=== PATIENT | male | born 1965 | race Caucasian/White ===

== ENCOUNTER 2017-07-19 16:52 | Emergency (ER) | payer OTHER ==
[2017-07-19 17:04] VITALS: RESP 18
[2017-07-19] MEDS ORDERED: SODIUM CHLORIDE 0.9% 1,000 ML IV STA (17:26)
--- NOTE | 2017-07-19 17:37 | ED ---
Neuro HPI - General Chief Complaint: Neuro Symptoms/Deficit Stated Complaint: poss cva Time Seen by Provider: 07/19/17 17:12 Source: patient, family, RN notes reviewed Mode of arrival: wheelchair Limitations: no limitations - History of Present Illness Is the patient presenting with stroke symptoms?: No Initial Comments: This is a 52-year-old male who presents with complaints of the onset yesterday around 11 AM of left-sided facial arm and leg numbness and tingling. He denied any weakness any blurry vision and headache dizziness nausea vomiting palpitations or other symptoms. Patient is a smoker he does drink he states around 3 drinks a day. No other medical issues at this time. No prior history of strokes he did see his doctor today who did recommend that he come to the hospital and get a CAT scan done. He still has some of the numbness and tingling. He also states that yesterday he has some ringing in his left ear the persisted. - Related Data Home Medications: Home Medications Medication Instructions Recorded Confirmed Aspirin 650 mg PO ONCE PRN 07/19/17 07/19/17 Ibuprofen [Motrin] 200 - 400 mg PO Q6HR PRN 07/19/17 07/19/17 Previous Rx's Medication Instructions Recorded Enalapril [Vasotec] 5 mg PO DAILY #15 tablet 07/19/17 Allergies/Adverse Reactions: Allergies Allergy/AdvReac Type Severity Reaction Status Date / Time No Known Allergies Allergy Verified 07/19/17 17:31 Review of Systems ROS Statement: Those systems with pertinent positive or pertinent negative responses have been documented in the HPI. ROS Other: All systems not noted in ROS Statement are negative. General Exam - General Exam Comments Initial Comments: This is a well-developed well-nourished awake alert oriented 3 male Limitations: no limitations General appearance: alert, in no apparent distress Head exam: Present: atraumatic, normocephalic, normal inspection Eye exam: Present: normal appearance, PERRL, EOMI. Absent: scleral icterus, conjunctival injection, periorbital swelling ENT exam: Present: mucous membranes moist, other (The patient demonstrates some fluid and left tympanic membrane no erythema no overt opacity. The rate was within normal limits.) Neck exam: Present: normal inspection, full ROM, other (No stridor JVD or bruits ). Absent: tenderness, meningismus, lymphadenopathy Respiratory exam: Present: wheezes (Wheezes and right lower lobe), decreased breath sounds. Absent: respiratory distress, rales, rhonchi, stridor Cardiovascular Exam: Present: regular rate, normal rhythm, normal heart sounds. Absent: systolic murmur, diastolic murmur, rubs, gallop, clicks GI/Abdominal exam: Present: soft, normal bowel sounds. Absent: distended, tenderness, guarding, rebound, rigid, bruit, pulsatile mass Extremities exam: Present: normal inspection, full ROM, normal capillary refill. Absent: tenderness, pedal edema, joint swelling, calf tenderness Back exam: Present: normal inspection Neurological exam: Present: alert, oriented X3, CN II-XII intact Psychiatric exam: Present: normal affect, normal mood Skin exam: Present: warm, dry, intact, normal color. Absent: rash Stroke MDM - Lab Data Result diagrams: 07/19/17 17:45 07/19/17 17:45 Lab Results 07/19/17 07/19/17 07/19/17 Range/Units 17:44 17:45 17:45 WBC (3.8-10.6) k/uL RBC (4.30-5.90) m/uL Hgb (13.0-17.5) gm/dL Hct (39.0-53.0) % MCV (80.0-100.0) fL MCH (25.0-35.0) pg MCHC (31.0-37.0) g/dL RDW (11.5-15.5) % Plt Count (150-450) k/uL Neutrophils % % Lymphocytes % % Monocytes % % Eosinophils % % Basophils % % Neutrophils # (1.3-7.7) k/uL Lymphocytes # (1.0-4.8) k/uL Monocytes # (0-1.0) k/uL Eosinophils # (0-0.7) k/uL Basophils # (0-0.2) k/uL Macrocytosis PT (9.0-12.0) sec INR (<1.2) APTT (22.0-30.0) sec Sodium 140 (137-145) mmol/L Potassium 3.6 (3.5-5.1) mmol/L Chloride 106 (98-107) mmol/L Carbon Dioxide 24 (22-30) mmol/L Anion Gap 10 mmol/L BUN 10 (9-20) mg/dL Creatinine 0.76 (0.66-1.25) mg/dL Est GFR (MDRD) Af Amer >60 (>60 ml/min/1.73 sqM) Est GFR (MDRD) Non-Af >60 (>60 ml/min/1.73 sqM) Glucose 89 (74-99) mg/dL POC Glucose (mg/dL) 113 H (75-99) mg/dL POC Glu Capacitor Inspector ID [place] Calcium 9.5 (8.4-10.2) mg/dL Magnesium 1.8 (1.6-2.3) mg/dL Total Bilirubin 0.4 (0.2-1.3) mg/dL AST 29 (17-59) U/L ALT 48 (21-72) U/L Alkaline Phosphatase 88 (38-126) U/L Total Creatine Kinase 61 (55-170) U/L CK-MB (CK-2) 1.8 (0.0-2.4) ng/mL CK-MB (CK-2) Rel Index 3.0 Troponin I <0.012 (0.000-0.034) ng/mL Total Protein 6.9 (6.3-8.2) g/dL Albumin 4.2 (3.5-5.0) g/dL Amylase 52 (30-110) U/L Lipase 98 (23-300) U/L TSH 4.480 (0.465-4.680) mIU/L Serum Alcohol <10 mg/dL 07/19/17 07/19/17 Range/Units 17:45 17:45 WBC 10.3 (3.8-10.6) k/uL RBC 4.62 (4.30-5.90) m/uL Hgb 16.1 (13.0-17.5) gm/dL Hct 46.3 (39.0-53.0) % MCV 100.2 H (80.0-100.0) fL MCH 34.8 (25.0-35.0) pg MCHC 34.7 (31.0-37.0) g/dL RDW 14.2 (11.5-15.5) % Plt Count 185 (150-450) k/uL Neutrophils % 63 % Lymphocytes % 27 % Monocytes % 5 % Eosinophils % 3 % Basophils % 1 % Neutrophils # 6.5 (1.3-7.7) k/uL Lymphocytes # 2.8 (1.0-4.8) k/uL Monocytes # 0.5 (0-1.0) k/uL Eosinophils # 0.3 (0-0.7) k/uL Basophils # 0.1 (0-0.2) k/uL Macrocytosis Slight PT 10.4 (9.0-12.0) sec INR 1.0 (<1.2) APTT 24.3 (22.0-30.0) sec Sodium (137-145) mmol/L Potassium (3.5-5.1) mmol/L Chloride (98-107) mmol/L Carbon Dioxide (22-30) mmol/L Anion Gap mmol/L BUN (9-20) mg/dL Creatinine (0.66-1.25) mg/dL Est GFR (MDRD) Af Amer (>60 ml/min/1.73 sqM) Est GFR (MDRD) Non-Af (>60 ml/min/1.73 sqM) Glucose (74-99) mg/dL POC Glucose (mg/dL) (75-99) mg/dL POC Glu Capacitor Inspector ID Calcium (8.4-10.2) mg/dL Magnesium (1.6-2.3) mg/dL Total Bilirubin (0.2-1.3) mg/dL AST (17-59) U/L ALT (21-72) U/L Alkaline Phosphatase (38-126) U/L Total Creatine Kinase (55-170) U/L CK-MB (CK-2) (0.0-2.4) ng/mL CK-MB (CK-2) Rel Index Troponin I (0.000-0.034) ng/mL Total Protein (6.3-8.2) g/dL Albumin (3.5-5.0) g/dL Amylase (30-110) U/L Lipase (23-300) U/L TSH (0.465-4.680) mIU/L Serum Alcohol mg/dL - NIH Stroke Scale 1a. Level of Consciousness: (0) alert 1b. LOC Questions: (0) answers correctly 1c. LOC Commands: (0) performs tasks correctly 2. Best Gaze: (0) normal 3. Visual: (0) no visual loss 4. Facial Palsy: (0) normal symmetrical movement 5a. Motor Arm Left: (0) no drift 5b. Motor Arm Right: (0) no drift 6a. Motor Leg Left: (0) no drift 6b. Motor Leg Right: (0) no drift 7. Limb Ataxia: (0) absent 8. Sensory: (0) normal 9. Best Language: (0) no aphasia 10. Dysarthria: (0) normal 11. Extinction/Inattention: (0) no abnormality - Medical Decision Making The patient's x-ray and CT are negative for acute findings. I did a long discussion with her regarding smoking cessation lasting 3.1 minutes total also alcohol cessation increase oral fluids he was offered admission for evaluation for neurological symptoms he is declining at this time. He wants to see outpatient treatment. He was instructed to take a baby aspirin a day return if any problems. He will also be started on low-dose antihypertensive medication. - EKG Data -: EKG Interpreted by Me EKG shows normal: sinus rhythm, axis, intervals, QRS complexes, ST-T waves ( Sinus rhythm rate is 74. Interval 150 to QRS 80 QT since QTC of 382/[address]-T wave changes this appears be a normal EKG) Past Medical History Past Medical History: No Reported History History of Any Multi-Drug Resistant Organisms: None Reported Past Surgical History: Orthopedic Surgery Past Psychological History: No Psychological Hx Reported Smoking Status: Current every day smoker Past Alcohol Use History: Daily Past Drug Use History: None Reported Course Vital Signs 07/19/17 07/19/17 16:59 18:04 Temperature 97 F L Pulse Rate 89 89 Respiratory 18 18 Rate Blood Pressure 177/97 209/98 O2 Sat by Pulse 99 96 Oximetry Disposition Clinical Impression: Transient cerebral ischemia, Hypertension, Dehydration Disposition: HOME SELF-CARE Condition: Good Instructions: Transient Ischemic Attack (ED), Hypertension (ED), Dehydration ( ED) Additional Instructions: [id number] Zyrtec for decongestion of the left ear Prescriptions: Enalapril [Vasotec] 5 mg PO DAILY #15 tablet Referrals: Jose Cartagena DO [Primary Care Provider] - 1-2 days Ela Dunn MD [STAFF PHYSICIAN] - 1-2 days Louie De Los Santos MD [STAFF PHYSICIAN] - 1-2 days
[2017-07-19 17:48] LABS: Glucose,Whole Blood 113 mg/dL (75-99)
[2017-07-19 17:57] LABS: Basophils # (A) 0.1 k/uL (0-0.2); Basophils % (A) 1 %; CH 36.3; CHCM 36.4; Eosinophils # (A) 0.3 k/uL (0-0.7); Eosinophils % (A) 3 %; HCT 46.3 % (39.0-53.0); HDW 2.74; HGB 16.1 gm/dL (13.0-17.5); Luc # (Auto) 0.12; Luc % (Auto) 1; Lymphocytes # (A) 2.8 k/uL (1.0-4.8); Lymphocytes % (A) 27 %; MCH 34.8 pg (25.0-35.0); MCHC 34.7 g/dL (31.0-37.0); MCV 100.2 fL (80.0-100.0); Macrocytosis Slight; Mean Platelet Volume 8.2; Monocytes # (A) 0.5 k/uL (0-1.0); Monocytes % (A) 5 %; Neutrophils # (A) 6.5 k/uL (1.3-7.7); Neutrophils % (A) 63 %; RBC 4.62 m/uL (4.30-5.90); RDW 14.2 % (11.5-15.5); WBC 10.3 k/uL (3.8-10.6); WBC (Perox) 10.19
[2017-07-19 18:05] LABS: ALT 48 U/L (21-72); AST 29 U/L (17-59); Alcohol <10 mg/dL; Alkaline Phosphatase 88 U/L (38-126); Amylase 52 U/L (30-110); Anion Gap 10 mmol/L; Blood Urea Nitrogen 10 mg/dL (9-20); Calcium 9.5 mg/dL (8.4-10.2); Carbon Dioxide 24 mmol/L (22-30); Chloride 106 mmol/L (98-107); Glucose 89 mg/dL (74-99); Magnesium 1.8 mg/dL (1.6-2.3); Non-African American GFR(MDRD) >60 (>60 ml/min/1.73 sqM); Potassium 3.6 mmol/L (3.5-5.1); Sodium 140 mmol/L (137-145); Total Bilirubin 0.4 mg/dL (0.2-1.3); Total Protein 6.9 g/dL (6.3-8.2)
[2017-07-19] MEDS ORDERED: SODIUM CHLORIDE 0.9% 500 ML IV ONE (18:05)
[2017-07-19 18:12] LABS: Partial Thromboplastin Time 24.3 sec (22.0-30.0); Prothrombin Time 10.4 sec (9.0-12.0)
--- NOTE | 2017-07-19 18:16 | CT ---
EXAMINATION TYPE: CT brain wo con DATE OF EXAM: 07/19/2017 COMPARISON: NONE HISTORY: Patient complains of episode of left side body numbness. CT DLP: 1070 mGycm. Automated exposure control for dose reduction was used. FINDINGS: There is no acute intracranial hemorrhage, mass effect, or midline shift identified. The v entricles and sulci are within normal limits in size. The globes are intact and the visualized sinus es are clear. IMPRESSION: No acute intracranial hemorrhage, mass effect, or midline shift is seen.
[2017-07-19 18:22] LABS: Creatine Kinase 61 U/L (55-170)
--- NOTE | 2017-07-19 18:25 | XR ---
EXAMINATION TYPE: XR chest 2V DATE OF EXAM: 07/19/2017 COMPARISON: NONE HISTORY: Mental status changes TECHNIQUE: Frontal and lateral views of the chest are obtained. FINDINGS: There is no focal air space opacity, pleural effusion, or pneumothorax seen. The cardiac silhouette size is within normal limits. The osseous structures are intact. IMPRESSION: No acute cardiopulmonary process.
[2017-07-19 18:36] LABS: Creatine Kinase MB 1.8 ng/mL (0.0-2.4); Troponin I <0.012 ng/mL (0.000-0.034)
[2017-07-19 18:56] VITALS: BP 186/85; PULSE 81; TEMP 96.9
== END 2017-07-19 19:01 | disposition home or self-care (01) ==
LOC: EC 16:52
DX: G45.9 Transient cerebral ischemic attack, unspecified (principal); I10 Essential (primary) hypertension; E86.0 Dehydration; R29.700 NIHSS score 0; R06.2 Wheezing; R06.89 Other abnormalities of breathing; H93.12 Tinnitus, left ear; F17.200 Nicotine dependence, unspecified, uncomplicated
CPT/HCPCS: 36415; 70450; 71020; 80053; 80320; 82150; 82550; 82553; 83690; 83735; 84443; 84484; 85025; 85610; 85730; 96360; 99284

== ENCOUNTER → 2017-08-15 | Outpatient (CLI) | payer OTHER ==
--- NOTE | 2017-08-15 09:49 | US ---
EXAMINATION TYPE: US thyroid st tissue head/neck DATE OF EXAM: 08/15/2017 COMPARISON: NONE CLINICAL HISTORY: R22.1 Neck Mass. Right palpable lump inferior to right ear Heterogeneous, hypoechoic area visualized at the area of concern measuring 2.8 x 1.9 x 2.1 cm. This a justyna does have internal vascularity IMPRESSION: Multilobulated solid 2.8 cm mass with internal vascularity in the region of the patient' s palpable abnormality inferior to the right ear. Further evaluation with dynamic enhanced CT or MR is recommended prior to potential percutaneous biopsy. Initial diagnostic considerations include adry opathy and minor salivary gland neoplasm.
--- NOTE | 2017-08-15 09:55 | XR ---
EXAMINATION TYPE: XR Hip Complete RT DATE OF EXAM: 08/15/2017 CLINICAL HISTORY: Left hip and back pain with no known injury. TECHNIQUE: AP and frogleg views of the left hip are obtained. COMPARISON: None. FINDINGS: There is no acute fracture/dislocation evident in the left hip. The joint space in the le ft hip appears within normal limits. The overlying soft tissue appears unremarkable. IMPRESSION: There is no acute fracture or dislocation in the left hip.
== END | disposition home or self-care (01) ==
LOC: RADUSWWP 08:55
PROVIDERS: ATTEND Family Medicine
DX: R22.1 Localized swelling, mass and lump, neck (principal); M25.551 Pain in right hip
CPT/HCPCS: 73502; 76536

== ENCOUNTER → 2019-07-08 | Outpatient (CLI) | payer OTHER ==
--- NOTE | 2019-07-08 12:05 | CT ---
EXAMINATION TYPE: CT soft tissue neck w con DATE OF EXAM: 07/08/2019 COMPARISON: none HISTORY: Right sided parotid swelling CT DLP: 308.9 mGycm CONTRAST: CT scan of the neck is performed with IV Contrast, patient injected with 100 mL of Isovue 300. Contrast enhanced CT of the neck was performed from the skull base through the lung apices. AIRWAY: The supraglottic, glottic, and subglottic portions of the airway appear patent and free of mass. SALIVARY GLANDS: Solid nodule right parotid gland inferiorly measures 2.6 x 2.3 x 1.9 cm. No addition al nodules identified. Ventricular glands are unremarkable. THYROID GLAND: No nodules or masses seen. LYMPH NODES: No adenopathy seen greater than 1cm. LUNG APICES: No nodule or mass is seen. OTHER: Vascular structures are patent. No significant degenerative change of the cervical spine. N o abscess seen. IMPRESSION: 1. Solid lesion right sided gland requires tissue diagnosis to exclude malignancy.
== END ==
LOC: RADCTMAIN 10:20
PROVIDERS: ATTEND Internal Medicine Rheumatology
DX: K11.8 Other diseases of salivary glands (principal)
CPT/HCPCS: 70491; Q9967

== ENCOUNTER 2019-07-27 13:29 | Emergency (ER) | payer OTHER ==
[2019-07-27 13:37] VITALS: BP 135/82; PULSE 97; RESP 16; TEMP 98
--- NOTE | 2019-07-27 14:09 | ED ---
General Adult HPI - General Chief complaint: Extremity Problem,Nontraumatic Stated complaint: left hand injury Source: patient, RN notes reviewed, old records reviewed Mode of arrival: ambulatory - History of Present Illness Initial comments: 54-year-old male patient with past history of hypertension presents to ED with chief complaint of bruising on dorsal aspect of left hand. Patient reports that he has always had a small amount of discoloration this region, however has increased in size last 2 weeks. Patient denies any pain. Patient denies any bleeding, denies any bleeding from gums, denies any bruises in any other area. Patient denies any use of blood thinners. Patient denies any liver issues. Denies all other complaints. Patient does report that he was playing vigorously with his dog and he may have bumped it. Systemic: Pt denies fatigue, fever/chills, rash. Pt denies weakness, night sweats, weight loss. Neuro: Pt denies headache, visual disturbances, syncope or pre-syncope. HEENT: Pt denies ocular discharge or irritation, otalgia, rhinorrhea, pharyngitis or notable lymphadenopathy. Cardiopulmonary: Pt denies chest pain, SOB, heart palpitations, dyspnea on exertion. Abdominal/GI: Pt denies abdominal pain, n/v/d. : Pt denies dysuria, burning w/ urination, frequency/urgency. Denies new onset urinary or bowel incontinence. MSK: Pt denies myalgia, loss of strength or function in extremities. Neuro: Pt denies new onset weakness, paresthesias. - Related Data Home Medications Medication Instructions Recorded Confirmed Aspirin 650 mg PO ONCE PRN 07/19/17 07/19/17 Ibuprofen [Motrin] 200 - 400 mg PO Q6HR PRN 07/19/17 07/19/17 Previous Rx's Medication Instructions Recorded Enalapril [Vasotec] 5 mg PO DAILY #15 tablet 07/19/17 Allergies Allergy/AdvReac Type Severity Reaction Status Date / Time No Known Allergies Allergy Verified 07/27/19 13:37 Review of Systems ROS Statement: Those systems with pertinent positive or pertinent negative responses have been documented in the HPI. ROS Other: All systems not noted in ROS Statement are negative. Past Medical History Past Medical History: No Reported History History of Any Multi-Drug Resistant Organisms: None Reported Past Surgical History: Orthopedic Surgery Past Psychological History: No Psychological Hx Reported Smoking Status: Current every day smoker Past Alcohol Use History: Daily Past Drug Use History: None Reported General Exam - General Exam Comments Initial Comments: Constitutional: NAD, AOX3, Pt has pleasant affect. HEENT: NC/AT, trachea midline, neck supple, no lymphadenopathy. Posterior pharynx non erythematous, without exudates. External ears appear normal, without discharge. Mucous membranes moist. Eyes PERRLA, EOM intact. There is no scleral icterus. No pallor noted. Cardiopulmonary: RRR, no murmurs, rubs or gallops, no JVD noted. Lungs CTAB in anterior and posterior carney. No peripheral edema. Abdominal exam: Abdomen soft and non-distended. Abdomen non-tender to palpation in all 4 quadrants. Bowel sounds active in LLQ. No hepatosplenomegaly. No ecchymosis Neuro: CN II-XII grossly intact. No nuchal rigidity. No raccon eyes, no montalvo sign, no hemotympanum. No cervical spinal tenderness. MSK: Approximately 2 x 2 ecchymotic area on dorsal aspect of right hand, nontender palpation, gas station cashier strength intact, neurovascularly intact, capillary refill less than 2 seconds. No posterior calf tenderness bilaterally, homans sign negative bilaterally. Posterior tibialis and radial pulse +2 bilaterally. Sensation intact in upper and lower extremities. Full active ROM in upper and lower extremities, 5/5 stregnth. Derm: No other ecchymosis noted. Course Vital Signs 07/27/19 13:35 Temperature 98 F Pulse Rate 97 Respiratory 16 Rate Blood Pressure 135/82 O2 Sat by Pulse 98 Oximetry Medical Decision Making - Medical Decision Making 54-year-old male patient with past history of hypertension presents to ED with chief complaint of bruising on dorsal aspect of left hand. Patient reports that he has always had a small amount of discoloration this region, however has increased in size last 2 weeks. Patient denies any pain. Patient denies any bleeding, denies any bleeding from gums, denies any bruises in any other area. Patient denies any use of blood thinners. Patient denies any liver issues. Denies all other complaints. Patient does report that he was playing vigorously with his dog and he may have bumped it. Patient vital signs stable, afebrile. Physical exam displayed: Approximately 2 x 2 ecchymotic area on dorsal aspect of right hand, nontender palpation, gas station cashier strength intact, neurovascularly intact, capillary refill less than 2 seconds. Plain films displayed acute process. Patient reports recently had laboratory investigation and declines any further workup. Patient discharged with primary care provider follow-up case discussed with Dr. Cardona. Disposition Clinical Impression: Bruise Disposition: HOME SELF-CARE Condition: Stable Instructions (If sedation given, give patient instructions): Ecchymosis (ED) Additional Instructions: Patient to adhere to previously discussed treatment plan and will take medication(s) as directed. Patient to follow up with PCP in 1-2 days. Patient to return to ED if symptoms do not improve. Follow-up with primary care provider, return to ER if condition worsens. Is patient prescribed a controlled substance at d/c from ED?: No Referrals: Louie De Los Santos MD [Primary Care Provider] - 1-2 days
--- NOTE | 2019-07-27 14:42 | XR ---
EXAMINATION TYPE: XR hand complete LT DATE OF EXAM: 07/27/2019 COMPARISON: None HISTORY: Bruising to the third metacarpal TECHNIQUE: Three-view left hand FINDINGS: Soft tissues appear normal. No acute fracture or dislocation is evident. Joint spaces are p reserved. IMPRESSION: 1. Normal three-view left hand. 2. Follow-up exams can be performed 7-10 days from acute trauma for continued pain.
== END 2019-07-27 14:56 | disposition home or self-care (01) ==
LOC: EC 13:29
DX: S60.222A Contusion of left hand, initial encounter (principal); I10 Essential (primary) hypertension; F17.200 Nicotine dependence, unspecified, uncomplicated; X58.XXXA Exposure to other specified factors, initial encounter
CPT/HCPCS: 99284

== ENCOUNTER → 2019-10-15 | Outpatient (CLI) | payer OTHER ==
--- NOTE | 2019-10-15 12:29 | XR ---
EXAMINATION TYPE: XR lumbosacral spine min 4V DATE OF EXAM: 10/15/2019 CLINICAL HISTORY: Low back pain TECHNIQUE: Frontal, lateral, and oblique images of the lumbar spine are obtained. COMPARISON: None FINDINGS: There are 5 lumbar type vertebral bodies identified. The lumbar spine shows satisfactory vertebral body heights. The oblique images demonstrate mild neural foraminal narrowing bilaterally at L3-L4 and L4-L5. Facet arthropathy is seen at L3-L4 and L4-L5. Multilevel small anterior osteophyt es of the lumbar spine. Very minimal grade 1 anterolisthesis of L4 and L5 of 4 mm. The overlying soft tissue appears unremarkable. Atherosclerosis of the abdominal aorta is partially visualized. IMPRESSION: 1. No acute fracture is seen in the lumbar spine. 2. Minimal grade 1 anterolisthesis of L4 on L5 is likely on a degenerative basis. Overall moderate de generative disc disease of the lumbar spine.
== END | disposition home or self-care (01) ==
LOC: RADXRMAIN 10:30
PROVIDERS: ATTEND Family Medicine
DX: M43.16 Spondylolisthesis, lumbar region (principal); M51.36 Other intervertebral disc degeneration, lumbar region
CPT/HCPCS: 72110

== ENCOUNTER → 2019-10-22 | Outpatient (CLI) | payer OTHER ==
--- NOTE | 2019-10-24 07:50 | MR ---
EXAMINATION TYPE: MR lumbar spine wo con DATE OF EXAM: 10/24/2019 COMPARISON: Plain film 10/15/2019 HISTORY: Low back pain TECHNIQUE: Multiplanar, multisequence images of the lumbar spine were acquired. There is motion on the exam. L1-L2: Normal disc appearance without desiccation. No herniation, protrusion or disc bulging. No ca nal stenosis is present. Foramina are patent bilaterally. L2-L3: Anterior mass effect on the thecal sac due to posterior broad-based disc bulge, no significant foraminal encroachment or spinal stenosis. There is facet arthropathy.. L3-L4: Minimal posterior disc bulge is present. There is facet arthropathy with hypertrophy ligamentu m flavum. No significant foraminal encroachment or spinal stenosis. L4-L5: There is some moderate spinal stenosis, posterior broad-based disc bulge is present with facet arthropathy and hypertrophy of ligamentum flavum causing some posterior lateral mass effect on the t hecal sac. Listhesis contributes to cause foraminal encroachment. L5-S1: No evident foraminal encroachment or spinal stenosis. Minimal disc bulge. Facet arthropathy ch ramona noted. Lumbar segments are intact. No paraspinal masses are identified. Conus medullaris has a normal appe arance. There is a mild spinal curvature. Multilevel spondylosis is present. There is endplate discog enic marrow signal change. Probable hemangioma present in the L2 vertebral body, intense on T1 and T2 sequences. Anterolisthesis grade 1 L4-5. Loss of disc height signal present L4-5, L1-2, L2-3 greater than L5-S1 IMPRESSION: Degenerative disc disease, spinal stenosis, multilevel facet arthropathy.
== END | disposition home or self-care (01) ==
LOC: RADMRIMAIN 13:22
PROVIDERS: ATTEND Physician Assistant
DX: M48.061 Spinal stenosis, lumbar region without neurogenic claudication (principal); M51.36 Other intervertebral disc degeneration, lumbar region; M46.96 Unspecified inflammatory spondylopathy, lumbar region
CPT/HCPCS: 72148

== ENCOUNTER → 2019-10-29 | Outpatient (CLI) | payer OTHER ==
--- NOTE | 2019-10-29 11:10 | CT ---
EXAMINATION TYPE: CT brain wo/w con DATE OF EXAM: 10/29/2019 COMPARISON: CT brain July 19, 2017 HISTORY: Left sided weakness, hx of stroke CT DLP: 2357 mGycm Automated exposure control for dose reduction was used. CONTRAST: CT scan of the head is performed without and with IV Contrast, patient injected with 100 mL of Isovue 300. FINDINGS: Noncontrast images show no acute intracranial hemorrhage or midline shift. Mild ventricula r sulcal prominence consistent with mild diffuse cerebral atrophy. Low-attenuation in the deep and pe riventricular white matter. Old lacunar infarct left coronal radiata axial image 32. Postcontrast milton ges show no suspicious enhancing intraparenchymal mass. The globes are intact and the visualized sinu ses are clear. IMPRESSION: Mild generalized cerebral atrophy and chronic small vessel ischemic change with old left- sided infarct. No suspicious enhancement.
--- NOTE | 2019-10-29 11:27 | US ---
EXAMINATION TYPE: US carotid duplex BILAT DATE OF EXAM: 10/29/2019 COMPARISON: CT CLINICAL HISTORY: I63.9 CEREBRAL INFRACTION. H/O stroke, left side weakenss EXAM MEASUREMENTS: RIGHT: Peak Systolic Velocity (PSV) cm/sec ----- Right CCA: 94.2 ----- Right ICA: 80.0 ----- Right ECA: 128.7 ICA/CCA ratio: 0.8 RIGHT: End Diastole cm/sec ----- Right CCA: 23.5 ----- Right ICA: 21.6 ----- Right ECA: 13.9 LEFT: Peak Systolic Velocity (PSV) cm/sec ----- Left CCA: 86.6 ----- Left ICA: 50.3 ----- Left ECA: 255.3 ICA/CCA ratio: 0.6 LEFT: End Diastole cm/sec ----- Left CCA: 12.8 ----- Left ICA: 14.7 ----- Left ECA: 37.9 VERTEBRALS (direction of flow): Right Vertebral: Unable to visualize Left Vertebral: Antegrade Rhythm: Normal Soft plaque visualized within left bulb/ Elevated velocities left ECA/ Left ECA small in caliber and low velocities when compared to right IMPRESSION: 1. Atherosclerotic plaque with no significant hemodynamic stenosis by carotid Doppler ultrasound. Criteria for Assigning % of Stenosis / Diameter reduction (Estimation based on the indirect measurements of the internal carotid artery velocities (ICA PSV). 1. Normal (no stenosis)=ICA PSV < 125 cm/s: ratio < 2.0: ICA EDV<40 cm/s. 2. Less than 50% stenosis=ICA PSV < 125 cm/s: ratio < 2.0: ICA EDV<40 cm/s. 3. 50 to 69% stenosis=ICA PSV of 125 to 230 cm/s: ration 2.0 ? 4.0: ICA EDV 40-100 cm/s. 4. Greater than 70% stenosis to near occlusion= ICA PSV > 230 cm/s: ratio > 4.0: ICA EDV > 100 cm/s. 5. Near occlusion= ICA PSV velocities may be low or undetectable: variable ratio and ICA EDV. 6. Total occlusion=unable to detect flow.
== END | disposition home or self-care (01) ==
LOC: RADCTMAIN 10:31
PROVIDERS: ATTEND Family Medicine
DX: G31.9 Degenerative disease of nervous system, unspecified (principal); I65.23 Occlusion and stenosis of bilateral carotid arteries
CPT/HCPCS: 70470; 93880

== ENCOUNTER → 2019-11-02 | Outpatient (CLI) | payer OTHER ==
--- NOTE | 2019-11-03 10:02 | MR ---
EXAMINATION TYPE: MR brain wo/w con DATE OF EXAM: 11/02/2019 COMPARISON: Correlation CT 10/29/2019 HISTORY: 54-year-old male I63.9, STROKE TECHNIQUE: Multiplanar, multisequence images of the brain and brainstem were acquired before and aft er administration of 7.5 mL IV Gadavist. Diffusion weighted imaging is performed. FINDINGS: DWI sequence in this faint nodular increased signal left centrum semiovale ovale measuring 9 x 4 mm. T2/FLAIR weighted sequences show corresponding bright signal near along with moderate patchy right si gnal change throughout the left sided centrum semiovale and deep white matter infarct extending infer iorly in the paraventricular region. Additional mild to moderate patchy periatrial white white matter change and some patchy signal changes within the bilateral paramedian clarisa. No abnormal intracranial enhancement is identified. Dural venous sinuses are patent. Dominant left vertebral artery. Major intracranial flow voids appear intact. No mass, mass effect, midline shift, herniation, effacement of basal cisterns, or extra-axial fluid c ollection. The ventricles and sulci are age-appropriate. Major intracranial flow voids are intact. Midline structures demonstrate normal morphology. The craniocervical junction is normal. Incidentally seen is a heterogeneous mass within the inferior aspect of the superficial lobe of right parotid gland measuring 2.0 cm wide, 2.3 cm AP, and 2.6 cm craniocaudal. Refer to postcontrast sagit moon image 130 and postcontrast coronal image 21. IMPRESSION: 1. Incidental heterogeneously enhancing mass within the superficial lobe of the right parotid gland m easuring 2.6 x 2.3 x 2.0 cm. Further clinical workup and management is recommended for possible saliv gabo gland neoplasm. 2. Faint nodular signal measuring 9 x 4 mm in the left centrum semiovale on DWI. Small focus of subac [place] deep white matter infarct suggested. No abnormal enhancement. 3. Adjacent larger old deep white matter infarct on the left extending down to the anterior limb left internal capsule. Moderate patchy changes of chronic small vessel ischemic disease particularly on t he left along with old lacunar infarcts in the clarisa.
== END | disposition home or self-care (01) ==
LOC: RADMRIMAIN 14:18
PROVIDERS: ATTEND Family Medicine
DX: I67.82 Cerebral ischemia (principal); R55 Syncope and collapse; R90.89 Other abnormal findings on diagnostic imaging of central nervous system; I63.81 Other cerebral infarction due to occlusion or stenosis of small artery
CPT/HCPCS: 70553; A9585

== ENCOUNTER → 2019-11-20 | Outpatient (CLI) | payer OTHER ==
--- NOTE | 2019-11-21 12:56 | ECHOF ---
Referral Reason:Z86.73 personal hx of TIA, and cerebral infarction MEASUREMENTS -------- HEIGHT: 172.7 cm WEIGHT: 74.8 kg BP: RVIDd: 2.6 cm (< 3.3) IVSd: 0.9 cm (0.6 - 1.1) LVIDd: 3.6 cm (3.9 - 5.3) LVPWd: 1.2 cm (0.6 - 1.1) IVSs: 1.5 cm LVIDs: 1.6 cm LVPWs: 1.8 cm LAESV Index (A-L): 20.41 ml/m Ao Diam: 3.0 cm (2.0 - 3.7) AV Cusp: 2.1 cm (1.5 - 2.6) LA Diam: 3.0 cm (2.7 - 3.8) MV EXCURSION: 11.106 mm (> 18.000) MV EF SLOPE: 40 mm/s (70 - 150) EPSS: 0.4 cm MV E John: 0.85 m/s MV DecT: 259 ms MV A John: 1.14 m/s MV E/A Ratio: 0.75 RAP: 5.00 mmHg RVSP: 20.01 mmHg FINDINGS -------- Sinus rhythm. This was a technically good study. The left ventricular size is normal. Left ventricular wall thickness is normal. Overall left vent ricular systolic function is normal with, an EF between 55 - 60 %. The diastolic filling pattern is normal for the age of the patient 12.41. The right ventricle is normal in size. The left atrial size is normal. Normal LA size by volume 22+/-6 ml/m2. The right atrial size is normal. The aortic valve is trileaflet and appears structurally normal. The mitral valve is normal. There is trace mitral regurgitation. The tricuspid valve appears structurally normal. Trace tricuspid regurgitation present. Right colby tricular systolic pressure is normal at < 35 mmHg. There is no pulmonic regurgitation present. The aortic root size is normal. Normal inferior vena cava with normal inspiratory collapse consistent with estimated right atrial pre ssure of 5 mmHg. Echo free space indicative of a pericardial fat pad vs Effusion. CONCLUSIONS -------- 1. Sinus rhythm. 2. This was a technically good study. 3. The left ventricular size is normal. 4. Left ventricular wall thickness is normal. 5. Overall left ventricular systolic function is normal with, an EF between 55 - 60 %. 6. The diastolic filling pattern is normal for the age of the patient 12.41 7. The right ventricle is normal in size. 8. The left atrial size is normal. 9. Normal LA size by volume 22+/-6 ml/m2. 10. The right atrial size is normal. 11. The aortic valve is trileaflet and appears structurally normal. 12. The mitral valve is normal. 13. There is trace mitral regurgitation. 14. The tricuspid valve appears structurally normal. 15. Trace tricuspid regurgitation present. 16. Right ventricular systolic pressure is normal at < 35 mmHg. 17. There is no pulmonic regurgitation present. 18. The aortic root size is normal. 19. Normal inferior vena cava with normal inspiratory collapse consistent with estimated right atrial pressure of 5 mmHg. 20. Echo free space indicative of a pericardial fat pad vs Effusion BOTTLED BEVERAGE INSPECTOR: Marissa Conti RDCS
== END | disposition home or self-care (01) ==
LOC: RADECHMAIN 14:42
PROVIDERS: ATTEND Psychiatry & Neurology Neurology
DX: Z09 Encounter for follow-up examination after completed treatment for conditions other than malignant neoplasm (principal); Z86.73 Personal history of transient ischemic attack (TIA), and cerebral infarction without residual deficits
CPT/HCPCS: 93306

== ENCOUNTER → 2020-11-06 | Outpatient (CLI) | payer OTHER ==
--- NOTE | 2020-11-06 11:45 | EST ---
EXERCISE STRESS AGE: 55 SEX: Male HT: 5'9" WT: 180 PROTOCOL: Lexiscan Cardiolite STAGE: DURATION OF EXERCISE: HEART RATE REST: 84 BLOOD PRESSURE REST: 151/81 MAXIMUM HEART RATE ACHIEVED: 101 MAXIMUM BLOOD PRESSURE: 157/77 85% MPHR: 140 100% MPHR: 165 METS: INDICATIONS: Preop cardiac evaluation. CLINICAL INFORMATION: Baseline EKG shows sinus rhythm, nonspecific ST-T wave changes. The patient was given intravenous Lexiscan as per protocol, did not have chest pain and there was worsening of the baseline ST-T wave changes. CONCLUSIONS: 1. Inconclusive EKG part of the stress test due to baseline EKG abnormalities. 2. Cardiolite portion of the stress test will be reported separately. MMODL / IJN: [id number] /
--- NOTE | 2020-11-06 12:00 | ECHOF ---
Referral Reason:I10 hypertention MEASUREMENTS -------- HEIGHT: 175.3 cm WEIGHT: 81.6 kg BP: 151/81 RVIDd: 2.8 cm (< 3.3) IVSd: 1.4 cm (0.6 - 1.1) LVIDd: 3.8 cm (3.9 - 5.3) LVPWd: 1.5 cm (0.6 - 1.1) IVSs: 1.6 cm LVIDs: 1.9 cm LVPWs: 1.8 cm LA Diam: 3.2 cm (2.7 - 3.8) Ao Diam: 3.0 cm (2.0 - 3.7) MV EXCURSION: 15.618 mm (> 18.000) MV EF SLOPE: 37 mm/s (70 - 150) EPSS: 0.3 cm MV E John: 0.73 m/s MV DecT: 275 ms MV A John: 0.83 m/s MV E/A Ratio: 0.88 FINDINGS -------- Sinus rhythm. This was a technically adequate study. The left ventricular size is normal. There is moderate concentric left ventricular hypertrophy. O verall left ventricular systolic function is normal with, an EF between 60 - 65 %. The right ventricle is normal in size. The left atrium is normal in size. The right atrium is normal in size. The aortic valve is trileaflet and appears structurally normal. The mitral valve is normal. The tricuspid valve appears structurally normal. The pulmonic valve was not well visualized. The aortic root size is normal. IVC Not well visulized. There is no pericardial effusion. CONCLUSIONS -------- 1. The left ventricular size is normal. 2. There is moderate concentric left ventricular hypertrophy. 3. Overall left ventricular systolic function is normal with, an EF between 60 - 65 %. 4. There is no pericardial effusion. MILK BOTTLER: Briana Seth RD
--- NOTE | 2020-11-06 15:06 | NM ---
EXAMINATION TYPE: NM stress lexiscan cardiolite DATE OF EXAM: 11/06/2020 COMPARISON: NONE HISTORY: Hypertension TECHNIQUE: After the intravenous administration of 10.4 mCi Tc 99m Sestamibi - Cardiolite resting SP ECT images acquired 45 minutes post injection. The patient received 0.4mg Lexiscan, 24.8 mCi Tc 99m Sestamibi - Stress images obtained [address] injection . FINDINGS: No fixed or reversible perfusion defects are evident. Gated wall motion appears normal. Ejection frac tion of 69% is normal. Polar maps suggest some diminished radiotracer along the septal wall near the cardiac base. Reversible defect at this level is not evident. IMPRESSION: 1. No stress-induced ischemic changes 2. Mild prior ischemic change at the septal cardiac base may be present. 3. Normal ejection fraction
== END | disposition home or self-care (01) ==
LOC: RADNMMAIN 08:17
PROVIDERS: ATTEND Family Medicine
DX: I99.8 Other disorder of circulatory system (principal); I11.9 Hypertensive heart disease without heart failure; R94.31 Abnormal electrocardiogram [ECG] [EKG]
CPT/HCPCS: 93017; 93306; 78452; A9500

== ENCOUNTER → 2021-02-03 | Outpatient (CLI) | payer OTHER ==
--- NOTE | 2021-02-03 13:10 | US ---
EXAMINATION TYPE: US venous doppler duplex LE BI DATE OF EXAM: 02/03/2021 12:53 PM COMPARISON: NONE CLINICAL HISTORY: R60.0 edema. SIDE PERFORMED: Bilateral TECHNIQUE: The lower extremity deep venous system is examined utilizing real time linear array sonog bolivar with graded compression, doppler sonography and color-flow sonography. VESSELS IMAGED: Common Femoral Vein Deep Femoral Vein Greater Saphenous Vein * Femoral Vein Popliteal Vein Small Saphenous Vein * Proximal Calf Veins (* superficial vessels) Right Leg: Negative for DVT Left Leg: Negative for DVT IMPRESSION: No evidence for DVT.
== END | disposition home or self-care (01) ==
LOC: RADUSWWP 12:07
PROVIDERS: ATTEND Family Medicine
DX: R60.0 Localized edema (principal)
CPT/HCPCS: 93970

== ENCOUNTER 2024-05-31 15:36 | Emergency (ER) | payer OTHER ==
[2024-05-31 15:47] VITALS: PULSE 93; RESP 18; TEMP 97.9
[2024-05-31 17:49] LABS: Basophils # (A) 0.1 k/uL (0-0.2); Basophils % (A) 1 %; Eosinophils # (A) 0.5 k/uL (0-0.7); Eosinophils % (A) 4 %; HCT 43.5 % (39.0-53.0); HGB 14.6 gm/dL (13.0-17.5); Lymphocytes # (A) 2.5 k/uL (1.0-4.8); Lymphocytes % (A) 22 %; MCH 30.7 pg (25.0-35.0); MCHC 33.6 g/dL (31.0-37.0); MCV 91.3 fL (80.0-100.0); Mean Platelet Volume 8.2; Monocytes # (A) 0.8 k/uL (0-1.0); Monocytes % (A) 7 %; Neutrophils # (A) 7.5 k/uL (1.3-7.7); Neutrophils % (A) 65 %; Platelet Count 229 k/uL (150-450); RBC 4.77 m/uL (4.30-5.90); RDW 12.9 % (11.5-15.5); WBC 11.5 k/uL (3.8-10.6)
[2024-05-31 18:02] LABS: INR 0.9 (<1.2); Partial Thromboplastin Time 24.3 sec (22.0-30.0); Prothrombin Time 10.2 sec (10.0-12.5)
[2024-05-31 18:16] LABS: ALT 29 U/L (4-49); AST 25 U/L (17-59); African American GFR (CKD) >90 (>60 ml/min/1.73 sqM); Albumin 4.1 g/dL (3.5-5.0); Alkaline Phosphatase 80 U/L (38-126); Anion Gap 6 mmol/L; Blood Urea Nitrogen 25 mg/dL (9-20); Calcium 9.7 mg/dL (8.4-10.2); Carbon Dioxide 26 mmol/L (22-30); Chloride 105 mmol/L (98-107); Creatine Kinase 46 U/L (55-170); Glucose 103 mg/dL (74-99); Non-African American GFR(CKD) >90 (>60 ml/min/1.73 sqM); Sodium 137 mmol/L (137-145); Total Bilirubin 0.4 mg/dL (0.2-1.3); Total Protein 6.6 g/dL (6.3-8.2)
--- NOTE | 2024-05-31 18:58 | XR ---
EXAMINATION TYPE: XR chest 2V DATE OF EXAM: 05/31/2024 COMPARISON: 07/19/2017 HISTORY: 59-year-old male confusion, altered mental status TECHNIQUE: AP and lateral views FINDINGS: Heart borderline in size. Mild perirectal cuffing without consolidation or pleural effusion. IMPRESSION: Borderline heart size. Mild bronchial cuffing could reflect bronchitis or asthma. Otherwise, no acute process seen.
[2024-05-31] MEDS: NICOTINE 21MG/24HR PATCH TRANSDERM STA (19:05)
[2024-05-31] MEDS ORDERED: SODIUM CHLORIDE 0.9% 1,000 ML IV ONE (19:41)
[2024-05-31] MEDS: LORazepam 2 MG/ML INJ IV STA (19:46)
--- NOTE | 2024-05-31 20:11 | ED ---
Neuro HPI - General Chief Complaint: Neuro Symptoms/Deficit Stated Complaint: Weakness R Side,Slurred Speech-Dr Green Time Seen by Provider: 05/31/24 16:00 Source: patient, family Mode of arrival: wheelchair Limitations: no limitations - History of Present Illness Is the patient presenting with stroke symptoms?: Yes Last Known Well Date: 05/13/24 Initial Comments: 59-year-old male presents emergency department with strokelike symptoms. It is reported that the patient has had slurred speech, expressive aphasia and right- sided weakness for the past [address] De Los Santos in office today who recommended that the patient get to the hospital. He has had a history of previous strokes however he had no significant deficit. Patient had obvious deficit in Dr. De Los Santos's office. Patient denies taking any blood thinners. He denies headaches or visual changes. - Related Data Home Medications: Home Medications Medication Instructions Recorded Confirmed Colchicine 0.6 mg PO BID PRN 05/31/24 05/31/24 Ergocalciferol (Vitamin D2) 1,250 mcg PO SA 05/31/24 05/31/24 [Drisdol (50,000 Iu)] Finasteride [Proscar] 5 mg PO DAILY 05/31/24 05/31/24 Ibuprofen [Motrin] 800 mg PO TID 05/31/24 05/31/24 NIFEdipine XL [Procardia Xl] 30 mg PO DAILY 05/31/24 05/31/24 Rosuvastatin [Crestor] 10 mg PO DAILY 05/31/24 05/31/24 allopurinoL [Zyloprim] 300 mg PO DAILY 05/31/24 05/31/24 amLODIPine [Norvasc] 5 mg PO DAILY 05/31/24 05/31/24 hydroCHLOROthiazide [Hydrodiuril] 12.5 mg PO DAILY 05/31/24 05/31/24 Previous Rx's Medication Instructions Recorded Enalapril [Vasotec] 5 mg PO DAILY #15 tablet 07/19/17 Allergies/Adverse Reactions: Allergies Allergy/AdvReac Type Severity Reaction Status Date / Time No Known Allergies Allergy Verified 07/27/19 13:37 Review of Systems ROS Statement: Those systems with pertinent positive or pertinent negative responses have been documented in the HPI. ROS Other: All systems not noted in ROS Statement are negative. General Exam Limitations: physical limitation General appearance: alert, anxious Head exam: Present: atraumatic, other (Right-sided facial droop) Neck exam: Present: normal inspection. Absent: tenderness, meningismus, lymphadenopathy Respiratory exam: Present: normal lung sounds bilaterally. Absent: respiratory distress, wheezes, rales, rhonchi, stridor Cardiovascular Exam: Present: regular rate, normal rhythm, normal heart sounds. Absent: systolic murmur, diastolic murmur, rubs, gallop, clicks GI/Abdominal exam: Present: soft, normal bowel sounds. Absent: distended, tenderness, guarding, rebound, rigid Extremities exam: Present: other (Contracture of the right upper extremity with decreased sole cutter strength. Patient unable to lift right leg off bed) Neurological exam: Present: other (Patient has dysarthria and expressive aphasia which makes exam difficult) Psychiatric exam: Present: agitated Stroke MDM - Lab Data Result diagrams: 05/31/24 17:40 05/31/24 17:40 Lab Results 05/31/24 05/31/24 05/31/24 Range/Units 17:40 17:40 17:40 WBC 11.5 H (3.8-10.6) k/uL RBC 4.77 (4.30-5.90) m/uL Hgb 14.6 (13.0-17.5) gm/dL Hct 43.5 (39.0-53.0) % MCV 91.3 (80.0-100.0) fL MCH 30.7 (25.0-35.0) pg MCHC 33.6 (31.0-37.0) g/dL RDW 12.9 (11.5-15.5) % Plt Count 229 (150-450) k/uL MPV 8.2 Neutrophils % 65 % Lymphocytes % 22 % Monocytes % 7 % Eosinophils % 4 % Basophils % 1 % Neutrophils # 7.5 (1.3-7.7) k/uL Lymphocytes # 2.5 (1.0-4.8) k/uL Monocytes # 0.8 (0-1.0) k/uL Eosinophils # 0.5 (0-0.7) k/uL Basophils # 0.1 (0-0.2) k/uL PT 10.2 (10.0-12.5) sec INR 0.9 (<1.2) APTT 24.3 (22.0-30.0) sec Sodium 137 (137-145) mmol/L Potassium 4.0 (3.5-5.1) mmol/L Chloride 105 (98-107) mmol/L Carbon Dioxide 26 (22-30) mmol/L Anion Gap 6 mmol/L BUN 25 H (9-20) mg/dL Creatinine 0.70 (0.66-1.25) mg/dL Est GFR (CKD-EPI)AfAm >90 (>60 ml/min/1.73 sqM) Est GFR (CKD-EPI)NonAf >90 (>60 ml/min/1.73 sqM) Glucose 103 H (74-99) mg/dL Calcium 9.7 (8.4-10.2) mg/dL Total Bilirubin 0.4 (0.2-1.3) mg/dL AST 25 (17-59) U/L ALT 29 (4-49) U/L Alkaline Phosphatase 80 (38-126) U/L Creatine Kinase 46 L (55-170) U/L Total Protein 6.6 (6.3-8.2) g/dL Albumin 4.1 (3.5-5.0) g/dL - Medical Decision Making Was pt. sent in by a medical professional or institution (, PA, DEPORTATION OFFICER, urgent care, hospital, or half-way...) When possible be specific @ -Patient was sent in from Dr. De Los Santos's office Did you speak to anyone other than the patient for history (EMS, parent, family, police, friend...)? What history was obtained from this source @ -I spoke with the patient's brother who does accompany him to the emergency room Did you review nursing and triage notes (agree or disagree)? Why? @ -I reviewed and agree with nursing and triage notes Were old charts reviewed (outside hosp., previous admission, EMS record, old EKG, old radiological studies, urgent care reports/EKG's, half-way records)? Report findings @ -No old charts were reviewed Differential Diagnosis (chest pain, altered mental status, abdominal pain women, abdominal pain men, vaginal bleeding, weakness, fever, dyspnea, syncope, headache, dizziness, GI bleed, back pain, seizure, CVA, palpatations, mental health, musculoskeletal)? @ -Differential CVA Ischemic stroke, hemorrhagic stroke, brain tumor, atypical migraine, Wernicke's encephalopathy, seizure, multiple sclerosis, meningitis, encephalitis, hypoglycemia, Guillain-Davis, electrolytes disturbance, myasthenia gravis.... This is not meant to be an all-inclusive list EKG interpreted by me (3pts min.). @ -Yes and demonstrates sinus rhythm with a rate of 88. TX interval 179. QRS 78. QTc of 373. No acute ST segment elevations depressions X-rays interpreted by me (1pt min.). @ -None done CT interpreted by me (1pt min.). @ -None done U/S interpreted by me (1pt. min.). @ -None done What testing was considered but not performed or refused? (CT, X-rays, U/S, labs)? Why? @ -CT of brain was ordered however patient refused and wanted to go home What meds were considered but not given or refused? Why? @ -None Did you discuss the management of the patient with other professionals (professionals i.e. , PA, DEPORTATION OFFICER, lab, RT, psych nurse, sr. social media & mobile manager, digestion operator, teacher, corporate responsibility officer, field case manager)? Give summary @ -No Was smoking cessation discussed for >3mins.? @ -No Was critical care preformed (if so, how long)? @ -No Were there social determinants of health that impacted care today? How? (Homelessness, low income, unemployed, alcoholism, drug addiction, transportation, low edu. Level, literacy, decrease access to med. care, custodial, rehab)? @ -No Was there de-escalation of care discussed even if they declined (Discuss DNR or withdrawal of care, Hospice)? DNR status @ -No What co-morbidities impacted this encounter? (DM, HTN, Smoking, COPD, CAD, Cancer, CVA, ARF, Chemo, Hep., AIDS, mental health diagnosis, sleep apnea, morbid obesity)? @ -Previous CVA Was patient admitted / discharged? Hospital course, mention meds given and route, prescriptions, significant lab abnormalities, going to OR and other pertinent info. @ -Upon arrival patient seen and evaluated in the hallway. He is then moved into room 18. I attempt to get a CT of his head. Patient refused and wanted to go home. He does have his brother and sister at bedside. I did discuss with them the need for imaging and hospitalization. Patient needs to be seen by a neurologist for his stroke. The stroke has already caused severe threat to bodily function. Patient is awake, alert. He is capable of making his own decisions. Patient is accepting of these risks and even the risk that his symptoms could get worse and cause . He still does not want to stay. I informed family that he must follow back up with Dr. De Los Santos to get the testing performed that he needs. If at any point he wants to return to the emergency department again. Patient and family were agreeable to this and the patient was discharged AGAINST MEDICAL ADVICE Undiagnosed new problem with uncertain prognosis? @ -Yes Drug Therapy requiring intensive monitoring for toxicity (Heparin, Nitro, Insulin, Cardizem)? @ -No Were any procedures done? @ -No Diagnosis/symptom? @ -Acute hemiparesis, acute CVA Acute, or Chronic, or Acute on Chronic? @ -Acute Uncomplicated (without systemic symptoms) or Complicated (systemic symptoms)? @ -Complicated Side effects of treatment? @ -No Exacerbation, Progression, or Severe Exacerbation? @ -No Poses a threat to life or bodily function? How? (Chest pain, [place], NH, pneumonia, PE, COPD, DKA, ARF, appy, cholecystitis, CVA, Diverticulitis, Homicidal, Suicidal, threat to staff... and all critical care pts) @ -Yes this patient has clearly suffered a stroke Past Medical History Past Medical History: No Reported History History of Any Multi-Drug Resistant Organisms: None Reported Past Surgical History: Orthopedic Surgery Past Psychological History: No Psychological Hx Reported Smoking Status: Current every day smoker Past Alcohol Use History: Daily Past Drug Use History: None Reported Course Vital Signs 05/31/24 05/31/24 15:43 19:33 Temperature 97.9 F Pulse Rate 93 Respiratory 18 Rate Blood Pressure 108/63 97/72 O2 Sat by Pulse 100 Oximetry Disposition Clinical Impression: Cerebrovascular accident (CVA) Disposition: LEFT AGAINST MEDICAL ADVICE Condition: Undetermined Additional Instructions: I recommended further workup as well as admission to the hospital for your stroke. I am concerned that you are choking on your food because of the stroke. Please follow-up with Dr. De Los Santos for further management of your stroke as you do not want to be hospitalized Is patient prescribed a controlled substance at d/c from ED?: No Referrals: Louie De Los Santos MD [Primary Care Provider] - 1-2 days Time of Disposition: 20:11
[2024-05-31 20:15] VITALS: BP 97/72
== END 2024-05-31 20:26 | disposition left against medical advice (07) ==
LOC: EC 15:36
DX: I63.9 Cerebral infarction, unspecified (principal); G81.90 Hemiplegia, unspecified affecting unspecified side; Z53.29 Procedure and treatment not carried out because of patient's decision for other reasons; F17.200 Nicotine dependence, unspecified, uncomplicated; Z79.899 Other long term (current) drug therapy
CPT/HCPCS: 36415; 93005; 80053; 82550; 85025; 85610; 85730; 71046; 99285; 96374; S4990; J2060